=== PATIENT | male | born 1990 | race Two or more races ===

== ENCOUNTER 2019-09-21 18:18 | Emergency (ER) | payer SELFPAY ==
[~2019-09-21] VITALS: Ht 162.6 cm; Wt 72.7 kg
[2019-09-21 18:54] VITALS: BP 127/81
--- NOTE | 2019-09-21 19:20 | PHYS DOC ---
Past Medical History Past Medical History: No Pertinent History Past Surgical History: No Surgical History Alcohol Use: None Adult General Chief Complaint Chief Complaint: KNEE INJURY HPI HPI Patient is a 28 year old male who presents with patient states he was playing soccer last night at 2100 when he went to kick the ball and heard a pop in his knee. Patient states his left knee is very painful on medial and lateral sides of the knee and partially in the back of the knee. He states he cannot fully extend it. Rates his pain 9 out of 10. He states he took ibuprofen earlier today. Patient states is too painful to ambulate put pressure on the knee. Review of Systems Review of Systems Musculoskeletal: Denies back pain. Left Knee joint pain [] All other systems were reviewed and found to be within normal limits, except as documented in this note. Current Medications Current Medications Current Medications Medications (Trade) Dose Ordered Sig/Jovanny Start Time Stop Time Status Last Admin Dose Admin Acetaminophen/ Hydrocodone Bitart (Lortab 5/325) 1 tab 1X ONCE 09/21/19 19:45 09/21/19 19:46 DC 09/21/19 19:46 1 TAB Allergies Allergies Allergies Coded Allergies Type Severity Reaction Last Updated Verified No Known Drug Allergies 09/21/19 No Physical Exam Physical Exam Constitutional: Well developed, well nourished, no acute distress, non-toxic appearance. [] HENT: Normocephalic, atraumatic, bilateral external ears normal, oropharynx moist, no oral exudates, nose normal. [] Eyes: PERRLA, EOMI, conjunctiva normal, no discharge. [] Neck: Normal range of motion, no tenderness, supple, no stridor. [] Cardiovascular:Heart rate regular rhythm, no murmur [] Lungs & Thorax: Bilateral breath sounds clear to auscultation [] Abdomen: Bowel sounds normal, soft, no tenderness, no masses, no pulsatile masses. [] Skin: Warm, dry, no erythema, no rash. [] Back: No tenderness, no CVA tenderness. [] Extremities: Left medial and lateral and posterior tenderness, no cyanosis, no clubbing, left knee ROM not intact, 1+ edema. [] Neurologic: Alert and oriented X 3, normal motor function, normal sensory function, no focal deficits noted. [] Psychologic: Affect normal, judgement normal, mood normal. [] Current Patient Data Vital Signs Vital Signs Date Time Temp Pulse Resp B/P (MAP) Pulse Ox O2 Delivery O2 Flow Rate FiO2 09/21/19 19:46 98 Room Air 09/21/19 18:54 97.5 61 18 127/81 (96) 97.5 EKG EKG [] Radiology/Procedures Radiology/Procedures [] Course & Med Decision Making Course & Med Decision Making Patient has some movement of the knee but cannot fully extend it. There is not any laxity of the knee. There is no deformity. Patient states that there is swelling but when compared to the other knee there may be 1+ swelling. Tenderness to the lateral medial knee and to the back of the knee. No bruising or lumps felt. Popliteal pulse is present. Skin pink warm and dry. Patient stat es the knee tingles at times but he can feel the knee. Cap refill less than 3 seconds. Xray read as no acute findings by Dr Vieira. This is most likely a ligament injury. A knee immobilizer placed. Patient referred to Orthopedics. I have discussed this patients findings and care plan with Dr Vieira. Josh Disclaimer Josh Disclaimer This electronic medical record was generated, in whole or in part, using a voice recognition dictation system. Departure Departure Impression: Primary Impression: Knee injury Disposition: HOME, SELF-CARE Condition: STABLE Referrals: NO PCP (PCP) DONYA WOOD MD Patient Instructions: Knee - Ligament Injury, Arthroscopy Additional Instructions: Follow-up with orthopedics as soon as possible. Keep the knee immobilizer on while awake. Use pain medication as prescribed. Do not play sports until released from orthopedics. Scripts Hydrocodone/Apap 5-325 (NORCO 5-325 TABLET) 1 Each Tablet 1 TAB PO PRN Q6HRS PRN for PAIN, #10 TAB 0 Refills Prov: JAYME SANFORD APRN 09/21/19 Problem Qualifiers Primary Impression: Knee injury Encounter type: initial encounter Laterality: left Qualified Codes: S89.92XA - Unspecified injury of left lower leg, initial encounter JAYME SANFORD APRN Sep 21, 2019 19:20
[2019-09-21] MEDS ORDERED: HYDROcodone/APAP 5/325MG 1 TAB TABLET PO ONE (19:45)
[2019-09-21] MEDS ORDERED: HYDR-3164 PO (20:36)
--- NOTE | 2019-09-21 20:54 | RAD ---
EXAM: AP, oblique, lateral, tangential patellar and PA views of the left knee DATE: 09/21/2019 7:56 PM INDICATION: Left knee pain, popping COMPARISON: No Prior FINDINGS/ IMPRESSION: 1. Small left knee joint effusion is seen. 2. However no definite acute fracture is identified. If there is persistent clinical concern for fracture, recommend further evaluation with CT or MRI if there is concern for internal derangement. 3. Neutral patellar tracking. Electronically signed by: Rey Landaverde MD (09/21/2019 8:51 PM) [id number]
== END 2019-09-21 20:56 | disposition home or self-care (01) ==
LOC: ER 18:18
DX: S89.82XA Other specified injuries of left lower leg, initial encounter (principal); M25.462 Effusion, left knee; R60.0 Localized edema; W21.02XA Struck by soccer ball, initial encounter; Y93.89 Activity, other specified; Y92.89 Other specified places as the place of occurrence of the external cause; Y99.8 Other external cause status
CPT/HCPCS: 29505; 73564; 99284